=== PATIENT | male | born 1965 ===

== ENCOUNTER 2024-12-17 05:28 | Day surgery (SDC) | payer OTHER ==
[2024-12-12 13:28] VITALS: BP 126/79
[~2024-12-17] VITALS: Ht 160 cm; Wt 83.9 kg
[2024-12-17] MEDS ORDERED: CEFAZOLIN SODIUM 1,000 MG VIAL IV ONE (08:00)
[2024-12-17] MEDS ORDERED: ENOXAPARIN SODIUM 40 MG/0.4 ML SYRINGE SUBCUTANEO ONE (08:15)
[2024-12-17] MEDS ORDERED: BUPIVACAINE HCL 30 ML VIAL IV ONE (08:15)
[2024-12-17] MEDS ORDERED: MIRALAX510 GM PO (09:11)
[2024-12-17] MEDS ORDERED: BACTRIM DS TAB1 EACH PO (09:12)
[2024-12-17] MEDS ORDERED: NEURONTIN800 MG PO (09:12)
[2024-12-17] MEDS ORDERED: PERCOCET 5-3251 EACH PO (09:12)
[2024-12-17] MEDS ORDERED: TYLENOL325 MG PO (09:13)
== END 2024-12-17 14:40 | disposition home or self-care (01) ==
LOC: CIR.AMB 05:28
PROVIDERS: ATTEND Surgery
DX: K42.0 Umbilical hernia with obstruction, without gangrene (principal); K43.6 Other and unspecified ventral hernia with obstruction, without gangrene